=== PATIENT | male | born 1955 | race Caucasian/White ===

== ENCOUNTER 2018-01-02 09:26 | Outpatient (CLI) | payer BC ==
[2018-01-02] MEDS ORDERED: BARIUM SULFATE 135 ML BOTTLE PO ONE (10:24)
[2018-01-02] MEDS ORDERED: BARIUM SULFATE 176 GM BOTTLE PO ONE (10:24)
--- NOTE | 2018-01-02 10:52 | XRAY Report ---
Procedure Date: 01/02/2018 Accession Number: [id number] / [id number] Procedure: [place] - Esophogram CPT Code: FULL RESULT: EXAM: Esophogram DATE: 01/02/2018 10:21 AM CLINICAL HISTORY: MID ESOPHAGEAL SOLID FOOD DYSPAHAGIA COMPARISON: None. TECHNIQUE: Routine double contrast esophagram. Fluoroscopic exposure time: 1 minute 35 seconds. Number of fluoroscopic images: 16. FINDINGS: Swallowing Mechanism: Normal. No tracheal aspiration or penetration. Esophageal Motility: Normal peristaltic stripping wave. Mucosa: Normal. No ulcerations or masses. Gastroesophageal Junction: There is a small sliding hiatal hernia present, producing reflux. Other: None. IMPRESSION: Small sliding hiatal hernia, producing reflux. No evidence of ulceration or mass lesion. [facility]
== END 2018-01-02 09:27 | disposition home or self-care (01) ==
LOC: DI 09:26
PROVIDERS: ATTEND Internal Medicine
DX: K44.9 Diaphragmatic hernia without obstruction or gangrene (principal); K21.9 Gastro-esophageal reflux disease without esophagitis
CPT/HCPCS: 74220; A9270

== ENCOUNTER 2018-08-22 07:28 | Outpatient (CLI) | payer OTHER ==
[2018-08-22 13:13] LABS: ALBUMIN 4.5 g/dL (3.2-5.5); ALBUMIN/GLOBULIN RATIO 1.6 (1.0-2.2); ALKALINE PHOSPHATASE 64 IU/L (42-121); ALT ALANINE AMINOTRANSFERASE 57 IU/L (10-60); AST ASPARTATE AMINOTRANSFERASE 31 IU/L (10-42); BILIRUBIN,TOTAL 0.7 mg/dL (0.2-1.0); BUN - BLOOD UREA NITROGEN 18 mg/dL (6-20); CALCIUM 9.2 mg/dL (8.5-10.3); CARBON DIOXIDE - CO2 26 mmol/L (21-32); CHLORIDE 100 mmol/L (101-111); CHOL/HDL RATIO 4.1 (<5.0); CHOLESTEROL 111 mg/dL; CREATININE 0.7 mg/dL (0.6-1.2); GFR - MDRD 114 (>89); GLUCOSE 256 mg/dL (70-100); HDL CHOLESTEROL 27 mg/dL; LDL CHOLESTEROL,CALCULATED 50 mg/dL; LDL/HDL RATIO 1.9 (<3.6); SODIUM 134 mmol/L (135-145); TOTAL PROTEIN 7.4 g/dL (6.7-8.2); VLDL CHOLESTEROL 34 mg/dL
[2018-08-22 16:16] LABS: CREATININE,URINE 127.4 mg/dL; PROTEIN/CREATININE RATIO,URINE 0.1 (<=0.2)
== END 2018-08-22 07:29 | disposition home or self-care (01) ==
LOC: LAB.F 07:28
PROVIDERS: ATTEND Internal Medicine
DX: E78.5 Hyperlipidemia, unspecified (principal); E11.9 Type 2 diabetes mellitus without complications
CPT/HCPCS: 36415; 80053; 80061; 82570; 83721; 84156; 84443

== ENCOUNTER 2018-12-11 08:51 | Outpatient (CLI) | payer OTHER ==
[2018-12-11 10:48] LABS: CALCIUM 9.3 mg/dL (8.5-10.3); CREATININE 0.8 mg/dL (0.6-1.2)
[2018-12-11 11:05] LABS: HB2 TOTAL 15.7 g/dL; HEMOGLOBIN A1C 0.89 g/dL; HEMOGLOBIN A1C % 7.3 % (4.6-6.2)
== END 2018-12-11 08:52 | disposition home or self-care (01) ==
LOC: LAB.F 08:51
PROVIDERS: ATTEND Internal Medicine
DX: E11.9 Type 2 diabetes mellitus without complications (principal)
CPT/HCPCS: 36415; 80048; 83036

== ENCOUNTER 2020-03-14 07:55 | Outpatient (CLI) | payer MEDICARE, OTHER | END 2020-03-14 07:56 | disposition short-term general hospital (02) | LOC: EMS 07:55 | PROVIDERS: ATTEND Surgery | DX: R10.31 Right lower quadrant pain (principal); R11.2 Nausea with vomiting, unspecified | CPT/HCPCS: A0425; A0427 ==

== ENCOUNTER 2022-06-12 07:03 | Outpatient (CLI) | payer MEDICARE ==
[2022-06-12 15:14] LABS: ALBUMIN 4.4 g/dL (3.2-5.5); ALBUMIN/GLOBULIN RATIO 1.6 (1.0-2.2); ALKALINE PHOSPHATASE 66 IU/L (42-121); ALT ALANINE AMINOTRANSFERASE 27 IU/L (10-60); AST ASPARTATE AMINOTRANSFERASE 21 IU/L (10-42); BILIRUBIN,TOTAL 0.6 mg/dL (0.2-1.0); BUN - BLOOD UREA NITROGEN 13 mg/dL (6-20); CALCIUM 9.4 mg/dL (8.5-10.3); CARBON DIOXIDE - CO2 29 mmol/L (21-32); CHLORIDE 101 mmol/L (101-111); CHOL/HDL RATIO 4.1 (<5.0); CHOLESTEROL 132 mg/dL; CREATININE 0.9 mg/dL (0.6-1.2); GFR - MDRD 84 (>89); GLUCOSE 128 mg/dL (70-100); HDL CHOLESTEROL 32 mg/dL; LDL CHOLESTEROL,CALCULATED 71 mg/dL; LDL/HDL RATIO 2.2 (<3.6); POTASSIUM 4.4 mmol/L (3.5-5.0); SODIUM 138 mmol/L (135-145); TOTAL PROTEIN 7.2 g/dL (6.7-8.2); TRIGLYCERIDES 144 mg/dL; VLDL CHOLESTEROL 29 mg/dL
[2022-06-12 21:02] LABS: ESTIMATED AVERAGE GLUCOSE 131 mg/dL (70-100); HEMOGLOBIN A1c% 6.2 % (4.27-6.07)
== END 2022-06-12 07:04 | disposition home or self-care (01) ==
LOC: LAB.S 07:03
PROVIDERS: ATTEND Family Medicine
DX: E11.9 Type 2 diabetes mellitus without complications (principal); E78.00 Pure hypercholesterolemia, unspecified; Z79.4 Long term (current) use of insulin
CPT/HCPCS: 36415; 80053; 80061; 83036; 83721